=== PATIENT | female | born 1995 | race Caucasian/White ===

== ENCOUNTER 2019-03-16 06:00 | Inpatient (IN) | payer OTHER ==
[2019-03-16 06:58] VITALS: BMI 24.5
[2019-03-16 07:48] LABS: COCAINE, UR NEGATIVE ng/ml (CUTOFF=300); METHADONE, UR NEGATIVE ng/ml (CUTOFF=300); OPIATES, URI NEGATIVE ng/ml (CUTOFF=300); PHENCYCLIDINE,URINE NEGATIVE ng/ml (CUTOFF=25); URINE AMPHETAMINES NEGATIVE ng/ml (CUTOFF=500); URINE BARBITURATES NEGATIVE ng/ml (CUTOFF=200); URINE BENZODIAZEPINES NEGATIVE ng/ml (CUTOFF=200)
[2019-03-16] MEDS ORDERED: BUTORPHANOL TARTRATE 1 MG/ML VIAL IVPB ONE (07:56)
[2019-03-16] MEDS ORDERED: PROMETHAZINE HCL 25 MG/1 ML VIAL IVPB ONE (07:56)
--- NOTE | 2019-03-16 08:00 | HP ---
Past Medical History - Admission Chief Complaint: Uterine Contractions History of Present Illness: 23yo @ 40.0wks here with contractions. No VB/LOF. +FM. 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: Alzheimer's, CVA, Dementia, Migraine, Multiple Sclerosis, Peripheral Neuropathy, Parkinson's, Seizure, Syncope, TIA, Vertigo, Other Cardiovascular: No: AFIB, Aneurysm, Aortic Insufficiency, Aortic Stenosis, CAD, CHF, Deep Vein Thrombosis, HTN, Hyperlipdemia, TN, Mitral Insufficiency, Mitral Stenosis, Murmur, Pulmonary Hypertension, Other Pulmonary: No: Asthma, Bronchitis, Cancer, COPD, O2 Dependent, Pneumonia, Previously Intubated, Pulmonary Embolus, Pulmonary Fibrosis, Sleep Apnea, Other Gastrointestinal: No: Ascites, Cancer, Constipation, Crohn's Disease, Diverticulitis, Diverticulosis, Esophageal Varices, Gastritis, GERD, GI Bleed, Hemorrhoids, Hiatal Hernia, Inflamatory Bowel Disease, Irritable Bowel Disease, Pancreatitis, Peptic Ulcer Disease, Ulcerative Colitis, Other Hepatobiliary: No: Cirrhosis, Cholelithiasis, Cholecystitis, Choledocholithiasis , Hepatitis A, Hepatitis B, Hepatitis C, Other Renal/: No: Renal Failure, Renal Inusuff, BPH, Cancer, Hematuria, Hemodialysis , Neurogenic Bladder, Renal Calculi, UTI, Other Reproductive: No: Ectopic , Endometriosis, Fibroids, PID, Polycystic Ovary Syndrome, Postmenopausal, Other ...: 2 ...Para: 1 ...Term: 1 ...: 0 ...Spon : 0 ...Induced : 0 ...Multiple Gestation: 0 ...LMP: 06/09/18 ... Weeks Gestation by Dates: 40.0 ...EDC by Dates: 03/16/19 Heme/Onc: Yes: Anemia - Past Surgical History Past Surgical History: Yes: None Hx Myomectomy: No Hx Transabdominal Cerclage: No - Smoking History Smoking history: Never smoked Have you smoked in the past 12 months: No - Alcohol/Substance Use Hx Alcohol Use: No History of Substance Use: reports: None - Social History Usual Living Arrangement: Yes: With Significant Other History of Recent Travel: No Home Medications - Allergies Allergies/Adverse Reactions: Allergies Allergy/AdvReac Type Severity Reaction Status Date / Time No Known Allergies Allergy Verified 03/16/19 06:41 - Home Medications Home Medications: Ambulatory Orders Pnv No.95/Ferrous Fum/Folic AC [ Vitamin Tablet] 1 each PO DAILY Review of Systems - Review of Systems Constitutional: denies: No Symptoms, Chills, Diaphoresis, Fever, Lethargy, Loss of Appetite, Malaise, Night Sweats, Unintentional Wgt. Loss, Weakness, Other Respiratory: denies: No Symptoms, Cough, Exercise Intolerance, Hemoptysis, Orthopnea, PND, Snoring, SOB, SOB on Exertion, Wheezing, Other Gastrointestinal: denies: No Symptoms, Abdominal Pain, Bloating, Constipation, Diarrhea, Dysphagia, Indigestion, Melena, Nausea, Rectal Bleeding, Vomiting, Vomiting Blood, Other Physical Exam - Maternity Vital Signs: Vital Signs Temperature 97.6 F 03/16/19 06:49 Pulse Rate 76 03/16/19 06:49 Respiratory Rate 20 03/16/19 06:49 Blood Pressure 103/70 03/16/19 06:49 O2 Sat by Pulse Oximetry (%) Constitutional: Yes: Well Nourished, No Distress, Calm Eyes: Yes: WNL, Conjunctiva Clear, EOM Intact HENT: Yes: WNL, Atraumatic, Normocephalic Neck: Yes: WNL, Supple, Trachea Midline Cardiovascular: Yes: WNL, Regular Rate and Rhythm Breast(s): Yes: WNL - Abdominal Exam/OB Number of Fetuses: Single Presentation: Vertex Contractions: Yes Regularity: Regular Intensity: Moderate Monitor Mode: External Category: I Accelerations: Non-Uniform Decelerations: None - Vaginal Exam/OB Vaginal Bleediing: No Speculum Exam: No Dilatation (cm): 2-3 Effacement (%): 50 Amniotic Membrane Status: Intact Presentation: Vertex/Position Station: -3 - Physical Exam Edema: No Assessment/Plan 23yo @ 40wks here in labor Admit to L&D NPO, IVFs Cat I tracing Stadol prn AROM/pitocin prn Anticipate Jose Eduardo Jacobo MD
[2019-03-16] MEDS ORDERED: DEXTROSE 5%-LACTATED RINGERS 1,000 ML IV SCH (08:15)
[2019-03-16] MEDS ORDERED: OXYTOCIN 20 UNITS in 0.9% NS 20 UNIT/1,000 ML INFUS.BAG IV ONE ×3 (10:41→14:54)
[2019-03-16] MEDS ORDERED: LIDOCAINE HCL 1% PRESERVATIVE FREE - 30ML VIAL ONE (10:41)
[2019-03-16] MEDS ORDERED: PROMETHAZINE HCL 25 MG/1 ML VIAL ONE (10:44)
[2019-03-16] MEDS ORDERED: BUTORPHANOL TARTRATE 1 MG/ML VIAL ONE ×3 (10:44→12:27)
--- NOTE | 2019-03-16 10:49 | PN ---
Progress Note (short form) - Note Progress Note: cx 5 cm 80 vx -2 mr, fhr cat 1, regular contraction
[2019-03-16] MEDS ORDERED: BUTORPHANOL TARTRATE 1 MG/ML VIAL IVPUSH ONE ×2 (11:00→12:38)
[2019-03-16] MEDS ORDERED: PROMETHAZINE HCL 25 MG/1 ML VIAL IVPUSH ONE (12:36)
--- NOTE | 2019-03-16 13:22 | PN ---
Progress Note (short form) - Note Progress Note: cx full 100 vx 0 mr ,OP, pushing, fhr cat1
[2019-03-16] MEDS ORDERED: OXYTOCIN 30 UNITS in 0.9% NS 30 UNIT/500 ML INFUS.BAG IVPB ONE (13:29)
[2019-03-16] MEDS ORDERED: WITCH HAZEL 50% (TUCKS) 40 PAD/JAR PAD TP PRN (14:11)
[2019-03-16] MEDS ORDERED: BENZOCAINE 20% 57 GM BOTTLE TP PRN (14:11)
[2019-03-16] MEDS ORDERED: BENZOCAINE 28 GM HEMORRHOIDAL OINTMENT TP PRN (14:11)
[2019-03-16] MEDS ORDERED: METHYLERGONOVINE MALEATE 0.2 MG/1 ML AMP IM PRN (14:11)
[2019-03-16] MEDS ORDERED: BISACODYL 10 MG SUPP.RECT RC PRN (14:11)
[2019-03-16] MEDS ORDERED: D5W-LR W/ 20 UNITS OXYTOCIN 20 UNIT/1,000 ML INFUS.BAG IV SCH (14:15)
[2019-03-16] MEDS ORDERED: OXYTOCIN 20 UNITS in 0.9% NS 20 UNIT/1,000 ML INFUS.BAG IV SCH (14:15)
[2019-03-16] MEDS: IBUPROFEN 600 MG TABLET (FP) PO PRN (15:45)
[2019-03-16] MEDS ORDERED: IBUPROFEN 400 MG TABLET (FP) PO ONE (15:45)
[2019-03-16] MEDS: FERROUS SO4 325 MG TABLET (FP) PO SCH (21:23)
[2019-03-16] MEDS: ACETAMINOPHEN 325 MG TABLET (FP) PO PRN (21:24)
[2019-03-17] MEDS: ACETAMINOPHEN 325 MG TABLET (FP) PO PRN ×2 (06:16→21:15)
[2019-03-17] MEDS: IBUPROFEN 600 MG TABLET (FP) PO PRN ×2 (06:16→21:15)
--- NOTE | 2019-03-17 08:24 | PN ---
Post Progress Note - Subjective Subjective: c/o perineal pain milton in situ draining Post Day: 1 Type of Delivery: Vital Signs: Vital Signs Temperature 98.4 F 03/17/19 06:27 Pulse Rate 78 03/17/19 06:27 Respiratory Rate 20 03/17/19 06:27 Blood Pressure 105/55 L 03/17/19 06:27 O2 Sat by Pulse Oximetry (%) Breast Exam: Yes: Soft, Other (BF ). No: Engorged Uterus: Yes: Fundus Firm, Fundus below umbilicus, Non-tender Lochia: Yes: Rubra Lochia, amount: Moderate Extremities: No: Calves non-tender Perineum: Yes: Episiotomy (midline, healing . vulva still edematous , tenderness in perineal area ) Activity: Ambulating Problem List - Problems (1) Encounter for care and examination after delivery Code(s): Z39.2 - ENCOUNTER FOR ROUTINE FOLLOW-UP Assessment/Plan stable vulva edema diminishing discontinue milton catheter encourage pt to ambulate after milton taken out, po fluids , kiegell ex pp bc pending
[2019-03-17 08:45] LABS: BASO % 0.4 % (0-2.0); EOS % 0.6 % (0-4.5); HEMATOCRIT 35.1 % (32.4-45.2); HEMOGLOBIN 11.4 GM/dL (10.7-15.3); LYMPH % 26.8 % (8-40); MCH 25.1 pg (25.7-33.7); MCHC 32.4 g/dl (32.0-36.0); MEAN CELL VOLUME 77.5 fl (80-96); MEAN PLT VOLUME 8.2 fl (7.5-11.1); NEUT % 67.2 % (42.8-82.8); PLATELET COUNT 195 K/MM3 (134-434); RBC 4.53 M/mm3 (3.60-5.2); RDW 17.8 % (11.6-15.6); WHITE BLOOD COUNT 10.7 K/mm3 (4.0-10.0)
[2019-03-17] MEDS: FERROUS SO4 325 MG TABLET (FP) PO SCH ×2 (09:48→21:12)
[2019-03-17] MEDS: PRENATAL VITAMINS W/ FOLIC ACID TABLET (FP) PO SCH (09:48)
[2019-03-17] MEDS ORDERED: DIPHTH,PERTUSS(ACELL),TET 0.5 ML DISP.SYRIN IM ONE (10:00)
[2019-03-17] MEDS ORDERED: SENNOSIDES/DOCUSATE COMBO (SENNA PLUS) TABLET (UD) PO PRN (22:00)
--- NOTE | 2019-03-18 07:23 | DS ---
Physical Examination Vital Signs: Vital Signs Temperature 98.0 F 03/17/19 21:10 Pulse Rate 76 03/17/19 21:10 Respiratory Rate 20 03/17/19 21:10 Blood Pressure 115/61 03/17/19 21:10 O2 Sat by Pulse Oximetry (%) Constitutional: Yes: No Distress, Calm Eyes: Yes: WNL HENT: Yes: Atraumatic, Normocephalic Neck: Yes: Supple Cardiovascular: Yes: Regular Rate and Rhythm Respiratory: Yes: Regular Gastrointestinal: Yes: Normal Bowel Sounds ...Rectal Exam: Yes: Deferred Renal/: Yes: Other (deferred) Breast(s): Yes: Other (deferred) Musculoskeletal: Yes: WNL Extremities: Yes: WNL Edema: Yes Edema: LLE: Trace, RLE: Trace Integumentary: Yes: WNL Neurological: Yes: Alert, Oriented ...Motor Strength: WNL Psychiatric: Yes: Alert, Oriented Labs: CBC, BMP 03/17/19 08:20 Discharge Summary Reason For Visit: LABOR Current Active Problems Encounter for care and examination after delivery (Acute) Procedures: Principal: Hospital Course: uncomplicated Condition: Stable - Instructions Diet, Activity, Other Instructions: Regular diet, follow up in 6-8 weeks for PP visit. Call Health center with any questions or concerns Referrals: Levy Reyna MD [Staff Physician] - Disposition: HOME - Home Medications Comprehensive Discharge Medication List: Ambulatory Orders Pnv No.95/Ferrous Fum/Folic AC [ Vitamin Tablet] 1 each PO DAILY
[2019-03-18] MEDS: PRENATAL VITAMINS W/ FOLIC ACID TABLET (FP) PO SCH (10:40)
[2019-03-18] MEDS: FERROUS SO4 325 MG TABLET (FP) PO SCH (10:40)
[2019-03-18] MEDS: IBUPROFEN 600 MG TABLET (FP) PO PRN (10:43)
[2019-03-18] MEDS: ACETAMINOPHEN 325 MG TABLET (FP) PO PRN (10:44)
[2019-03-18 12:51] VITALS: BP 112/68; PULSE 72; TEMP 98.4
== END 2019-03-18 14:40 | disposition home or self-care (01) | DRG 560 ==
LOC: JLDR 06:00 → J3W 17:14
PROVIDERS: ADMIT Obstetrics & Gynecology; ATTEND Obstetrics & Gynecology
PROC: 10E0XZZ Delivery of Products of Conception, External Approach (ICD-10-PCS; principal; 2019-03-16)
DX: O80 Encounter for full-term uncomplicated delivery (principal); Z3A.40 40 weeks gestation of pregnancy; Z37.0 Single live birth
CPT/HCPCS: 36415; 36600; 59409; 80307; 82803; 85025; 90715